=== PATIENT | male | born 1975 | race Caucasian/White ===

== ENCOUNTER → 2019-03-29 12:42 | Outpatient (CLI) | payer OTHER, SELFPAY ==
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
== END ==
PROVIDERS: Visit Provider Student in an Organized Health Care Education/Training Program
DX: M79.605 Pain in left leg (principal); T14.8XXA Other injury of unspecified body region, initial encounter
CPT/HCPCS: 73590; 93971

== ENCOUNTER → 2021-03-13 11:33 | Outpatient (CLI) | payer BC, SELFPAY ==
[2021-03-13 12:13] LABS: COVID19 -Nasal RAPID Negative (Negative)
== END ==
PROVIDERS: PCP Internal Medicine; Visit Provider Nurse Practitioner Family
DX: R50.9 Fever, unspecified (principal); J02.9 Acute pharyngitis, unspecified
CPT/HCPCS: 87070; 87635

== ENCOUNTER → 2021-04-12 10:10 | Outpatient (CLI) | payer BC, SELFPAY ==
[2021-04-12 10:54] LABS: COVID19 -Nasal RAPID Negative (Negative)
== END ==
PROVIDERS: PCP Student in an Organized Health Care Education/Training Program; Visit Provider Surgery
DX: Z01.812 Encounter for preprocedural laboratory examination (principal); Z20.822 Contact with and (suspected) exposure to COVID-19
CPT/HCPCS: 87635; C9803

== ENCOUNTER 2021-04-13 06:39 | Day surgery (SDC) | payer BC, SELFPAY ==
[2021-04-09 12:18] VITALS: BMI 30.1
[2021-04-13] VITALS (10 sets, daily range): BP systolic 104–136; BP diastolic 66–87; PULSE 55–70; RESP 11–18; TEMP 36.4–36.7; O2SAT 94–98; BMI 30.1
[2021-04-13] MEDS: LACTATED RINGERS 1,000 ML 100 ML IV (07:20)
--- NOTE | 2021-04-13 07:36 | PM.PREOP ---
Pre-operative Note Interval Note History & Physical reviewed/Exam performed by Physician: Yes Changes to H&P: No
[2021-04-13] MEDS: CLINDAMYCIN 900 MG/50 ML PIGGYBACK 50 MG IV (07:38)
--- NOTE | 2021-04-13 08:01 | SUR.OPER ---
Supine on padded OR bed, head on pillow, arms secured on padded arm boards at <90 degrees abduction, legs uncrossed, safety belt at thigh, tape over blanket over lower legs.
[2021-04-13] MEDS: BUPIVACAINE 0.25% (PF) VIAL 30 ML INJ (08:05)
[2021-04-13] MEDS: fentaNYL 100 MCG/2 ML INJ IV ×2 (08:53→09:04)
[2021-04-13] MEDS: ONDANSETRON 4 MG/2 ML INJ IV (08:59)
[2021-04-13] MEDS: OXYCODONE/ACETAMINOPHEN 5/325 TABLET 1 TAB PO ×2 (09:09→09:30)
[2021-04-13] MEDS: HYDROMORPHONE 2 MG INJ IV ×2 (10:10→10:32)
--- NOTE | 2021-04-13 10:40 | PM.OP.1 ---
Operative Date/Time/Diagnoses Date of procedure: 04/13/21 Time of procedure: 10:40 Pre-op diagnosis: ventral hernia Post-op diagnosis: same Procedure & Clinicians Procedure: open ventral hernia repair Same procedure as scheduled: Yes Indications: reducible ventral hernia Surgeon: Hiren Hinkle Click Yes if Unassisted: Yes Anesthesia Type: General Operative Notes Findings: small bowel within the hernia sac. partial thickness serosal tear x 2 Specimen(s): none sent Estimated Blood Loss (mL): 10 Procedure in detail: Patient was brought to the operating room placed supine on the table. Bilateral lower extremity compression devices were applied. They received 2 g of Ancef prior to skin incision. Prepped and draped in sterile fashion, ioban was placed. Time-out was performed. A midline incision was made superior to the umbilicus with a knife. The subcutaneous tissue was divided to expose the midline fascia. The fascia had a 5 cm defect extending from superior to the umbilicus. The fascia was grasped elevated and sharply opened. Within the hernia sac there was small bowel that was tightly adherent to the sac. In carefully freeing the bowel from the hernia sac two partial thickness serosal tears of approximately 2 mm in length occurred that were both imbricated with 2-0 silk suture. I milked content across both sites there was no leakage of any content. A towel was then placed over the visceral content to protect it out of harms way. The retromuscular space was entered by incising the posterior rectus sheath approximately 1 cm from its edge. The retromuscular plane was developed using electrocautery with care to protect the neurovascular structures. The retrorectus space was developed in the same fashion on the contralateral side. The posterior sheath was then closed with a running 2-0 vicryl. I selected a Bard 8 x 4 cm oval polypropelene soft tissue mesh in the retro rectus space. The mesh was anchored with interrupted Ethibond suture to the rectus in four quadrants such that the mesh lay under physiologic tension. The anterior sheath was then closed in interrupted fashion with Ethibond without tension. Hemostasis was checked. The subcutaneous tissue was then reapproximated using Vicryl skin closed with running 4-0 Monocryl followed by the application of Dermabond. Patient emerged from anesthesia was extubated and transferred to recovery room in stable condition. Complications: none Post-operative Condition: stable Disposition: same day surgery
[2021-04-13] MEDS: KETOROLAC 30 MG/ML VIAL IV (10:42)
[2021-04-13] MEDS: LORazepam 2 MG/ML INJ 0.5 MG IV (10:44)
== END 2021-04-13 11:30 | disposition home or self-care (01) ==
PROVIDERS: PCP Student in an Organized Health Care Education/Training Program; Referring Provider Surgery; Visit Provider Surgery
PROC: (CPT 49560; principal; 2021-04-13 07:45)
DX: K43.9 Ventral hernia without obstruction or gangrene (principal)
CPT/HCPCS: 49560; 49568; C1781; J1170; J1885; J2060; J2250; J2405; J3010

== ENCOUNTER → 2021-09-27 16:24 | Outpatient (CLI) | payer OTHER, SELFPAY ==
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
== END ==
PROVIDERS: PCP Student in an Organized Health Care Education/Training Program; Referring Provider Student in an Organized Health Care Education/Training Program; Visit Provider Student in an Organized Health Care Education/Training Program
DX: S69.91XA Unspecified injury of right wrist, hand and finger(s), initial encounter (principal); X58.XXXA Exposure to other specified factors, initial encounter
CPT/HCPCS: 73140

== ENCOUNTER → 2022-11-17 16:47 | Outpatient (CLI) | payer OTHER, SELFPAY ==
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
== END ==
PROVIDERS: PCP Student in an Organized Health Care Education/Training Program; Referring Provider Nurse Practitioner Family; Visit Provider Nurse Practitioner Family
DX: S62.222A Displaced Rolando's fracture, left hand, initial encounter for closed fracture (principal); V89.2XXA Person injured in unspecified motor-vehicle accident, traffic, initial encounter
CPT/HCPCS: 73080; 73130